=== PATIENT | female | born 1945 | race Caucasian/White ===

== ENCOUNTER 2019-10-13 12:38 | Inpatient (IN) | payer MEDICARE, MEDICAID ==
[~2019-10-13] VITALS: Ht 167.6 cm; Wt 73.0 kg
[~2019-10-13 12:38] MED LIST: ACET650S21 PO; AMLO-150 PO; ASCO500T8 PO; BISA10SU54 PR; CYCL-259 PO; GABA300C PO; INSU100C SQ-INSULIN; INSU100I13 SQ-INSULIN; INSU100V8 SQ; LEVO200T PO; LISI-170 PO; MAGN400O7 PO; MAGN400T9 PO; METF500T17 PO; MORP20SO PO; MULT1TAB98 PO; NYST15PO9 TP; ONDA4TAB7 PO; OXYC-302 PO; OXYC5CAP2 PO; PIPE3.373 INJ; POLY17PO5 PO; PROT1PAC2 PO; RIVA10TA2 PO; SENN-220 PO; TRAM100T3 PO
--- NOTE | 2019-10-13 13:25 | NUR ---
EKG COMPLETE. XRAY COMPLETE. LAB AT BEDSIDE.
[2019-10-13 13:37] LABS: HCT (SEDRATE) 33.1 % (34.6-47.8)
[2019-10-13 13:38] LABS: MEAN CORPUSCULAR HEMOGLOBIN 27.1 pg (27.0-34.8); MEAN CORPUSCULAR HGB CONC 32.2 g/dL (32.4-35.8); MEAN PLATELET VOLUME 6.4 fL (7.4-10.4); PLATELET COUNT 687 x10^3/uL (130-400); RED BLOOD COUNT 3.97 x10^6/uL (3.82-5.3); RED CELL DISTRIBUTION WIDTH 16.3 % (9.6-15.2)
[2019-10-13 13:47] LABS: ALANINE AMINOTRANSFERASE 11 U/L (12-78); ALBUMIN 2.1 g/dL (3.4-5.0); ANION GAP 7 mmol/L (5-15); CALCIUM 8.7 mg/dL (8.5-10.1); CHLORIDE 101 mmol/L (98-107); CREATININE 0.84 mg/dL (0.55-1.02)
--- NOTE | 2019-10-13 13:54 | NUR ---
PT ATTEMPTED TO TRANSFER TO BEDSIDE COMMODE, PT UNABLE TO MOVE MUCH. "I JUST CAN'T ANYMORE TODAY". PT MINIMALLY ROLLED SIDE TO SIDE TO CLEAN UP FROM LOOSE BM. PT STATES SHE HAS BEEN GIVEN LOTS OF STOOL SOFTENERS. PT REFUSES STRAIGHT CATH FOR URINE SAMPLE. NOTIFIED.
[2019-10-13 13:55] LABS: ALKALINE PHOSPHATASE 151 U/L (45-117); BILIRUBIN,TOTAL 0.4 mg/dL (0.2-1.0); TOTAL PROTEIN 6.9 g/dL (6.4-8.2)
[2019-10-13] MEDS ORDERED: PIPERACILLIN/TAZO/PMX 3.375GM 50 ML IV ONE (14:30)
[2019-10-13] MEDS ORDERED: SODIUM CHLORIDE 0.9% 1,000 ML IV ONE (14:30)
--- NOTE | 2019-10-13 14:33 | NUR ---
ATTEMPT TO ASSIST RN WITH STRAIGHT CATH, PT REFUSED. EDUCATION PROVIDED.
[2019-10-13 14:36] LABS: BASOPHILS # (AUTO) 0.07 x10^3/uL (0-0.1); BASOPHILS % (AUTO) 0 % (0-1); EOSINOPHILS # (AUTO) 0.02 x10^3/uL (0-0.4); EOSINOPHILS % (AUTO) 0 % (1-7); LYMPHOCYTES # (AUTO) 2.15 x10^3/uL (1-3.4); LYMPHOCYTES % (AUTO) 11 % (22-44); MONOCYTES # (AUTO) 0.92 x10^3/uL (0.2-0.8); MONOCYTES % (AUTO) 5 % (2-9); NEUTROPHILS # (AUTO) 17.27 x10^3/uL (1.8-6.8); NEUTROPHILS % (AUTO) 85 % (42-75)
[2019-10-13 14:37] LABS: MD MORPH REVIEW ONLY
[2019-10-13 14:39] LABS: ANISOCYTOSIS 1+
[2019-10-13 14:40] LABS: <PLATELET ESTIMATE> INCREASED; <PLT MORPHOLOGY> NORMAL PLT MORPH; POLYCHROMASIA 1+
--- NOTE | 2019-10-13 14:41 | NUR ---
PT AGREED TO STRAIGHT CATH. THIS RN AND ANOTHER FEMALE RN AT BEDSIDE FOR STRAIGHT CATH, PT HAD ANOTHER LOOSE BM AND PT CLEANED UP. BM COLLECTED FOR TESTING. PT POSITIONED FOR STRAIGHT CATH AND SHE STARTED YELLING AND HITTING OUR HANDS AWAY. PT MADE AWARE OF PROCESS AND PT YELLING FOR US TO STOP. PROCEDURE STOPPED AT THIS TIME. PT MADE COMFORTABLE. PT STATING SHE NEEDS TO BE "KNOCKED OUT FOR STRAIGHT CATH". AWARE. NEW ORDER FOR C-DIFF R/O.
--- NOTE | 2019-10-13 15:01 | NUR ---
MD STATES TO HOLD OFF ON ABX UNTIL AFTER C-DIFF RESULTS BACK.
[2019-10-13 15:24] LABS: CLOSTRIDIUM DIFFICILE ANTIGEN NEGATIVE; CLOSTRIDIUM DIFFICILE TOXIN NEGATIVE (Negative)
[2019-10-13] MEDS: SODIUM CHLORIDE 0.9% 1,000 ML IV SCH ×3 (15:57→21:55)
[2019-10-13] MEDS ORDERED: BISACODYL 10 MG SUPP PR PRN (16:00)
[2019-10-13] MEDS: PIPERACILLIN/TAZO/PMX 3.375GM 50 ML IV SCH ×2 (16:00→21:42)
[2019-10-13] MEDS ORDERED: PROMETHAZINE 25 MG/ML, 1ML IM PRN (16:00)
[2019-10-13] MEDS: INSULIN LISPRO 100 UNITS/ML, PEN SQ-INSULIN SCH ×2 (16:00→21:00)
[2019-10-13] MEDS ORDERED: hydrALAzine 20 MG/ML, 1ML IVPush PRN (16:00)
[2019-10-13] MEDS ORDERED: LABETALOL 5MG/ML, 20ML IVPush PRN (16:00)
[2019-10-13] MEDS ORDERED: morphine SULFATE 10 MG/ML, 1ML IVPush PRN (16:00)
[2019-10-13] MEDS ORDERED: ONDANSETRON 2MG/ML, 2ML IVPush PRN (16:00)
[2019-10-13] MEDS ORDERED: PIPERACILLIN/TAZO/PMX 3.375GM 50 ML ONE (16:17)
[2019-10-13] MEDS ORDERED: OXYcodone IR 5MG TABLET ONE (17:18)
[2019-10-13] MEDS: OXYcodone IR 5MG TABLET PO PRN (17:22)
--- NOTE | 2019-10-13 17:45 | NUR ---
LUNCH BREAK NOTE: PT ADJUSTED IN BED, MEDICATED FOR PAIN THEN WARM LINENS PLACED UNDER PT, PT CLEANED OF STOOL AND URINE, AND PT GIVEN WARM BLANKET ON TOP. PT IS ON WAFFLE.
--- NOTE | 2019-10-13 17:56 | NUR ---
REPORT CALLED TO SHREYA ON [employer] AND SHE IS AWARE TO SPEAK TO PRIMARY RN BETH IF ANY FURTHER QUESTIONS.
[2019-10-13 19:24] VITALS: BP 146/85
[2019-10-13] MEDS: ASCORBIC ACID 500 MG TABLET PO SCH (21:42)
[2019-10-13] MEDS: INSULIN GLARGINE 100 UNITS/ML, PEN SQ-INSULIN SCH (21:43)
[2019-10-13 21:46] VITALS: BP 166/94
[2019-10-13 22:37] LABS: MICROSCOPIC AUTO
[2019-10-14 00:55] VITALS: BP 162/92
[2019-10-14] MEDS: OXYcodone IR 5MG TABLET PO PRN ×4 (01:37→19:03)
[2019-10-14] MEDS: SODIUM CHLORIDE 0.9% 1,000 ML IV SCH (01:39)
[2019-10-14] MEDS: PIPERACILLIN/TAZO/PMX 3.375GM 50 ML IV SCH ×4 (03:49→22:25)
[2019-10-14] MEDS: LEVOTHYROXINE 200 MCG TABLET PO SCH (05:09)
[2019-10-14 06:03] LABS: MEAN CORPUSCULAR HEMOGLOBIN 27.1 pg (27.0-34.8); MEAN CORPUSCULAR HGB CONC 32.1 g/dL (32.4-35.8); MEAN PLATELET VOLUME 6.5 fL (7.4-10.4); PLATELET COUNT 617 x10^3/uL (130-400); RED BLOOD COUNT 3.49 x10^6/uL (3.82-5.3); RED CELL DISTRIBUTION WIDTH 16.2 % (9.6-15.2)
[2019-10-14 06:12] LABS: ALANINE AMINOTRANSFERASE 11 U/L (12-78); ALBUMIN 1.8 g/dL (3.4-5.0); ANION GAP 7 mmol/L (5-15); CALCIUM 8.2 mg/dL (8.5-10.1); CHLORIDE 102 mmol/L (98-107)
[2019-10-14 06:14] LABS: ALKALINE PHOSPHATASE 143 U/L (45-117); BILIRUBIN,TOTAL 0.5 mg/dL (0.2-1.0)
[2019-10-14 06:39] LABS: BASOPHILS # (AUTO) 0.05 x10^3/uL (0-0.1); BASOPHILS % (AUTO) 0 % (0-1); EOSINOPHILS % (AUTO) 0 % (1-7); LYMPHOCYTES # (AUTO) 1.92 x10^3/uL (1-3.4); LYMPHOCYTES % (AUTO) 10 % (22-44); MD SCAN; MONOCYTES # (AUTO) 0.75 x10^3/uL (0.2-0.8); MONOCYTES % (AUTO) 4 % (2-9); NEUTROPHILS # (AUTO) 16.56 x10^3/uL (1.8-6.8); NEUTROPHILS % (AUTO) 86 % (42-75)
[2019-10-14 07:06] VITALS: BP 132/67
[2019-10-14] MEDS: INSULIN LISPRO 100 UNITS/ML, PEN SQ-INSULIN SCH ×4 (07:47→21:00)
[2019-10-14] MEDS: INSULIN GLARGINE 100 UNITS/ML, PEN SQ-INSULIN SCH ×2 (07:48→22:41)
[2019-10-14] MEDS: ASCORBIC ACID 500 MG TABLET PO SCH ×2 (07:50→22:38)
[2019-10-14] MEDS: LISINOPRIL 20 MG TABLET PO SCH (07:50)
[2019-10-14] MEDS: AMLODIPINE 5 MG TABLET PO SCH (07:51)
[2019-10-14] MEDS: GABAPENTIN 300 MG CAPSULE PO SCH (07:51)
[2019-10-14] MEDS: RIVAROXABAN 10 MG TABLET PO SCH (07:51)
[2019-10-14 12:27] VITALS: BP 145/84
[2019-10-14] MEDS: POTASSIUM CHLORIDE 20 MEQ TAB.ER.PRT PO SCH (15:53)
[2019-10-14 18:00] VITALS: BP 144/80
[2019-10-14 20:35] VITALS: BP 134/72
[2019-10-15] MEDS: OXYcodone IR 5MG TABLET PO PRN ×3 (00:34→10:37)
[2019-10-15 01:47] VITALS: BP 146/77
[2019-10-15] MEDS: PIPERACILLIN/TAZO/PMX 3.375GM 50 ML IV SCH ×4 (05:17→23:36)
[2019-10-15] MEDS: LEVOTHYROXINE 200 MCG TABLET PO SCH (05:25)
[2019-10-15 06:08] LABS: BASOPHILS # (AUTO) 0.03 x10^3/uL (0-0.1); BASOPHILS % (AUTO) 0 % (0-1); EOSINOPHILS # (AUTO) 0.08 x10^3/uL (0-0.4); EOSINOPHILS % (AUTO) 1 % (1-7); LYMPHOCYTES # (AUTO) 1.87 x10^3/uL (1-3.4); LYMPHOCYTES % (AUTO) 13 % (22-44); MD NO; MEAN CORPUSCULAR HEMOGLOBIN 27.1 pg (27.0-34.8); MEAN CORPUSCULAR HGB CONC 32.5 g/dL (32.4-35.8); MEAN PLATELET VOLUME 6.5 fL (7.4-10.4); MONOCYTES # (AUTO) 1.08 x10^3/uL (0.2-0.8); MONOCYTES % (AUTO) 8 % (2-9); NEUTROPHILS % (AUTO) 79 % (42-75); PLATELET COUNT 592 x10^3/uL (130-400); RED CELL DISTRIBUTION WIDTH 16.6 % (9.6-15.2)
[2019-10-15 06:15] LABS: ALANINE AMINOTRANSFERASE 11 U/L (12-78); ALBUMIN 1.7 g/dL (3.4-5.0); ANION GAP 7 mmol/L (5-15); CALCIUM 8.3 mg/dL (8.5-10.1); CHLORIDE 104 mmol/L (98-107); CREATININE 0.74 mg/dL (0.55-1.02)
[2019-10-15 06:17] LABS: ALKALINE PHOSPHATASE 121 U/L (45-117); BILIRUBIN,TOTAL 0.3 mg/dL (0.2-1.0); TOTAL PROTEIN 5.4 g/dL (6.4-8.2)
[2019-10-15] MEDS: INSULIN LISPRO 100 UNITS/ML, PEN SQ-INSULIN SCH ×4 (07:00→20:57)
[2019-10-15 07:32] VITALS: BP 136/76
[2019-10-15] MEDS: GABAPENTIN 300 MG CAPSULE PO SCH (08:14)
[2019-10-15] MEDS: RIVAROXABAN 10 MG TABLET PO SCH (08:15)
[2019-10-15] MEDS: AMLODIPINE 5 MG TABLET PO SCH (08:15)
[2019-10-15] MEDS: ASCORBIC ACID 500 MG TABLET PO SCH ×2 (08:15→20:58)
[2019-10-15] MEDS: LISINOPRIL 20 MG TABLET PO SCH (08:15)
[2019-10-15] MEDS: POTASSIUM CHLORIDE 20 MEQ TAB.ER.PRT PO SCH ×2 (08:15→17:14)
[2019-10-15] MEDS: INSULIN GLARGINE 100 UNITS/ML, PEN SQ-INSULIN SCH ×2 (08:17→20:58)
[2019-10-15] MEDS: LOPERAMIDE 2 MG CAPSULE PO PRN ×2 (10:37→17:19)
[2019-10-15 14:29] VITALS: BP 157/86
[2019-10-15] MEDS: CYCLOBENZAPRINE 10 MG TABLET PO PRN (17:19)
[2019-10-15] MEDS: ACETAMINOPHEN 325 MG TABLET PO PRN (17:19)
[2019-10-15 19:54] VITALS: BP 121/76
[2019-10-15] MEDS ORDERED: ASCORBIC ACID 250 MG TAB ONE (20:50)
[2019-10-16 01:00] VITALS: BP 140/68
[2019-10-16] MEDS: LEVOTHYROXINE 200 MCG TABLET PO SCH (04:41)
[2019-10-16] MEDS: CYCLOBENZAPRINE 10 MG TABLET PO PRN ×2 (04:41→21:35)
[2019-10-16] MEDS: ACETAMINOPHEN 325 MG TABLET PO PRN ×3 (04:41→21:34)
[2019-10-16] MEDS: LOPERAMIDE 2 MG CAPSULE PO PRN ×3 (04:42→21:34)
[2019-10-16] MEDS: PIPERACILLIN/TAZO/PMX 3.375GM 50 ML IV SCH ×4 (04:57→23:15)
[2019-10-16 05:35] LABS: ALBUMIN 1.9 g/dL (3.4-5.0); ANION GAP 7 mmol/L (5-15); CALCIUM 8.4 mg/dL (8.5-10.1); CHLORIDE 102 mmol/L (98-107)
[2019-10-16 05:39] LABS: ALANINE AMINOTRANSFERASE 17 U/L (12-78); ALKALINE PHOSPHATASE 131 U/L (45-117); BILIRUBIN,TOTAL 0.5 mg/dL (0.2-1.0); CREATININE 0.89 mg/dL (0.55-1.02); TOTAL PROTEIN 6.4 g/dL (6.4-8.2)
[2019-10-16 05:45] LABS: BASOPHILS # (AUTO) 0.06 x10^3/uL (0-0.1); BASOPHILS % (AUTO) 0 % (0-1); EOSINOPHILS # (AUTO) 0.04 x10^3/uL (0-0.4); EOSINOPHILS % (AUTO) 0 % (1-7); LYMPHOCYTES # (AUTO) 1.08 x10^3/uL (1-3.4); LYMPHOCYTES % (AUTO) 8 % (22-44); MD NO; MEAN CORPUSCULAR HEMOGLOBIN 26.7 pg (27.0-34.8); MEAN PLATELET VOLUME 6.5 fL (7.4-10.4); MONOCYTES # (AUTO) 1.14 x10^3/uL (0.2-0.8); MONOCYTES % (AUTO) 8 % (2-9); NEUTROPHILS # (AUTO) 11.53 x10^3/uL (1.8-6.8); NEUTROPHILS % (AUTO) 83 % (42-75); PLATELET COUNT 730 x10^3/uL (130-400); RED BLOOD COUNT 3.44 x10^6/uL (3.82-5.3); RED CELL DISTRIBUTION WIDTH 16.5 % (9.6-15.2)
[2019-10-16] MEDS: OXYcodone IR 5MG TABLET PO PRN ×3 (06:04→21:34)
[2019-10-16] MEDS: INSULIN LISPRO 100 UNITS/ML, PEN SQ-INSULIN SCH ×4 (07:00→21:33)
[2019-10-16 07:10] VITALS: BP 123/74
[2019-10-16] MEDS: GABAPENTIN 300 MG CAPSULE PO SCH (09:15)
[2019-10-16] MEDS: AMLODIPINE 5 MG TABLET PO SCH (09:15)
[2019-10-16] MEDS: RIVAROXABAN 10 MG TABLET PO SCH (09:15)
[2019-10-16] MEDS: LISINOPRIL 20 MG TABLET PO SCH (09:15)
[2019-10-16] MEDS: INSULIN GLARGINE 100 UNITS/ML, PEN SQ-INSULIN SCH ×2 (09:16→21:35)
[2019-10-16] MEDS: POTASSIUM CHLORIDE 20 MEQ TAB.ER.PRT PO SCH ×3 (09:16→21:34)
[2019-10-16] MEDS: ASCORBIC ACID 500 MG TABLET PO SCH ×2 (09:16→21:34)
[2019-10-16 13:21] VITALS: BP 126/68
[2019-10-16 18:38] VITALS: BP 140/79
[2019-10-17 01:00] VITALS: BP 130/82
[2019-10-17] MEDS: CYCLOBENZAPRINE 10 MG TABLET PO PRN ×2 (05:20→19:48)
[2019-10-17] MEDS: OXYcodone IR 5MG TABLET PO PRN ×3 (05:20→22:56)
[2019-10-17] MEDS: LEVOTHYROXINE 200 MCG TABLET PO SCH (05:20)
[2019-10-17] MEDS: PIPERACILLIN/TAZO/PMX 3.375GM 50 ML IV SCH ×4 (05:20→22:56)
[2019-10-17 05:43] LABS: BASOPHILS # (AUTO) 0.03 x10^3/uL (0-0.1); BASOPHILS % (AUTO) 0 % (0-1); EOSINOPHILS # (AUTO) 0.07 x10^3/uL (0-0.4); EOSINOPHILS % (AUTO) 1 % (1-7); LYMPHOCYTES % (AUTO) 13 % (22-44); MD NO; MEAN CORPUSCULAR HGB CONC 32.4 g/dL (32.4-35.8); MEAN PLATELET VOLUME 6.4 fL (7.4-10.4); MONOCYTES # (AUTO) 1.23 x10^3/uL (0.2-0.8); MONOCYTES % (AUTO) 12 % (2-9); NEUTROPHILS # (AUTO) 7.94 x10^3/uL (1.8-6.8); NEUTROPHILS % (AUTO) 74 % (42-75); PLATELET COUNT 724 x10^3/uL (130-400); RED BLOOD COUNT 3.56 x10^6/uL (3.82-5.3); RED CELL DISTRIBUTION WIDTH 16.2 % (9.6-15.2)
[2019-10-17 05:49] LABS: ALANINE AMINOTRANSFERASE 18 U/L (12-78); ALBUMIN 1.8 g/dL (3.4-5.0); ANION GAP 6 mmol/L (5-15); CALCIUM 8.3 mg/dL (8.5-10.1); CHLORIDE 101 mmol/L (98-107); CREATININE 0.82 mg/dL (0.55-1.02)
[2019-10-17 05:51] LABS: ALKALINE PHOSPHATASE 121 U/L (45-117); BILIRUBIN,TOTAL 0.4 mg/dL (0.2-1.0); TOTAL PROTEIN 6.3 g/dL (6.4-8.2)
[2019-10-17] MEDS: INSULIN LISPRO 100 UNITS/ML, PEN SQ-INSULIN SCH ×4 (07:00→19:45)
[2019-10-17] MEDS: INSULIN GLARGINE 100 UNITS/ML, PEN SQ-INSULIN SCH ×3 (07:52→19:46)
[2019-10-17] MEDS: AMLODIPINE 5 MG TABLET PO SCH (07:56)
[2019-10-17] MEDS: POTASSIUM CHLORIDE 20 MEQ TAB.ER.PRT PO SCH ×3 (07:56→19:45)
[2019-10-17] MEDS: RIVAROXABAN 10 MG TABLET PO SCH (07:56)
[2019-10-17] MEDS: LISINOPRIL 20 MG TABLET PO SCH (07:56)
[2019-10-17] MEDS: GABAPENTIN 300 MG CAPSULE PO SCH (07:56)
[2019-10-17] MEDS: ASCORBIC ACID 500 MG TABLET PO SCH ×2 (07:56→19:45)
[2019-10-17 07:57] VITALS: BP 123/73
[2019-10-17] MEDS ORDERED: INSULIN GLARGINE 100 UNITS/ML, PEN SQ-INSULIN SCH ×2 (09:00→21:00)
[2019-10-17 14:02] VITALS: BP 124/68
[2019-10-17 18:23] VITALS: BP 130/76
[2019-10-18 01:09] VITALS: BP 129/65
[2019-10-18 04:40] LABS: MEAN CORPUSCULAR HGB CONC 32.2 g/dL (32.4-35.8); MEAN PLATELET VOLUME 6.1 fL (7.4-10.4); PLATELET COUNT 674 x10^3/uL (130-400); RED BLOOD COUNT 3.49 x10^6/uL (3.82-5.3); RED CELL DISTRIBUTION WIDTH 16.7 % (9.6-15.2)
[2019-10-18 04:41] LABS: ALBUMIN 1.7 g/dL (3.4-5.0); CALCIUM 8.1 mg/dL (8.5-10.1); CHLORIDE 102 mmol/L (98-107)
[2019-10-18] MEDS: PIPERACILLIN/TAZO/PMX 3.375GM 50 ML IV SCH ×4 (04:59→23:02)
[2019-10-18 05:00] LABS: ALANINE AMINOTRANSFERASE 21 U/L (12-78); ALKALINE PHOSPHATASE 123 U/L (45-117); ANION GAP 7 mmol/L (5-15); BILIRUBIN,TOTAL 0.5 mg/dL (0.2-1.0); CREATININE 0.87 mg/dL (0.55-1.02); TOTAL PROTEIN 6.3 g/dL (6.4-8.2)
[2019-10-18 05:07] LABS: BASOPHILS # (AUTO) 0.03 x10^3/uL (0-0.1); BASOPHILS % (AUTO) 0 % (0-1); EOSINOPHILS # (AUTO) 0.05 x10^3/uL (0-0.4); EOSINOPHILS % (AUTO) 0 % (1-7); LYMPHOCYTES # (AUTO) 1.47 x10^3/uL (1-3.4); LYMPHOCYTES % (AUTO) 11 % (22-44); MD SCAN; MONOCYTES # (AUTO) 1.51 x10^3/uL (0.2-0.8); MONOCYTES % (AUTO) 12 % (2-9); NEUTROPHILS # (AUTO) 9.93 x10^3/uL (1.8-6.8); NEUTROPHILS % (AUTO) 77 % (42-75)
[2019-10-18] MEDS: LEVOTHYROXINE 200 MCG TABLET PO SCH (05:28)
[2019-10-18] MEDS: OXYcodone IR 5MG TABLET PO PRN ×2 (05:29→14:05)
[2019-10-18] MEDS: INSULIN LISPRO 100 UNITS/ML, PEN SQ-INSULIN SCH ×4 (07:00→21:00)
[2019-10-18 07:58] VITALS: BP 140/80
[2019-10-18] MEDS: GABAPENTIN 300 MG CAPSULE PO SCH (09:07)
[2019-10-18] MEDS: AMLODIPINE 5 MG TABLET PO SCH (09:07)
[2019-10-18] MEDS: LISINOPRIL 20 MG TABLET PO SCH (09:07)
[2019-10-18] MEDS: POTASSIUM CHLORIDE 20 MEQ TAB.ER.PRT PO SCH ×4 (09:07→23:02)
[2019-10-18] MEDS: ASCORBIC ACID 500 MG TABLET PO SCH ×2 (09:07→23:02)
[2019-10-18] MEDS: RIVAROXABAN 10 MG TABLET PO SCH (09:07)
[2019-10-18] MEDS: INSULIN GLARGINE 100 UNITS/ML, PEN SQ-INSULIN SCH ×2 (09:08→21:00)
[2019-10-18 13:48] VITALS: BP 165/82
[2019-10-18] MEDS ORDERED: DEXTROSE 50%, 50ML SYRINGE IVPush PRN (14:00)
[2019-10-18] MEDS ORDERED: GLUCAGON 1 MG IM PRN (14:00)
[2019-10-18] MEDS ORDERED: DEXTROSE 4 GM TAB.CHEW PO PRN (14:00)
[2019-10-18 14:58] LABS: MICROSCOPIC INDICATED
[2019-10-18] MEDS ORDERED: LORazepam 2 MG/ML, 1ML IVPush ONE (16:00)
[2019-10-18] MEDS ORDERED: GADOTERATE 10 MMOL/20 ML SYR ONE (16:47)
[2019-10-18] MEDS: LACTATED RINGERS 1,000 ML IV SCH (17:26)
[2019-10-18 20:20] VITALS: BP 145/79
[2019-10-18] MEDS: SODIUM CHLORIDE FLUSH 10ML SYR IVF SCH (21:00)
[2019-10-18] MEDS: CYCLOBENZAPRINE 10 MG TABLET PO PRN (23:02)
[2019-10-19 01:09] VITALS: BP 146/85
[2019-10-19] MEDS ORDERED: ACETAMINOPHEN 650 MG SUPP PR PRN (01:30)
[2019-10-19 02:42] LABS: BASOPHILS # (AUTO) 0.02 x10^3/uL (0-0.1); BASOPHILS % (AUTO) 0 % (0-1); EOSINOPHILS # (AUTO) 0.03 x10^3/uL (0-0.4); EOSINOPHILS % (AUTO) 0 % (1-7); LYMPHOCYTES % (AUTO) 7 % (22-44); MD NO; MEAN CORPUSCULAR HEMOGLOBIN 26.7 pg (27.0-34.8); MEAN CORPUSCULAR HGB CONC 32.2 g/dL (32.4-35.8); MEAN PLATELET VOLUME 6.3 fL (7.4-10.4); MONOCYTES # (AUTO) 0.69 x10^3/uL (0.2-0.8); MONOCYTES % (AUTO) 6 % (2-9); NEUTROPHILS # (AUTO) 9.72 x10^3/uL (1.8-6.8); NEUTROPHILS % (AUTO) 86 % (42-75); PLATELET COUNT 679 x10^3/uL (130-400); RED BLOOD COUNT 3.48 x10^6/uL (3.82-5.3); RED CELL DISTRIBUTION WIDTH 16.5 % (9.6-15.2)
[2019-10-19 03:10] LABS: ALANINE AMINOTRANSFERASE 26 U/L (12-78); ALBUMIN 1.7 g/dL (3.4-5.0); ANION GAP 9 mmol/L (5-15); CALCIUM 8.4 mg/dL (8.5-10.1); CHLORIDE 101 mmol/L (98-107); CREATININE 0.95 mg/dL (0.55-1.02)
[2019-10-19 03:12] LABS: ALKALINE PHOSPHATASE 127 U/L (45-117); BILIRUBIN,TOTAL 0.5 mg/dL (0.2-1.0); TOTAL PROTEIN 6.5 g/dL (6.4-8.2)
[2019-10-19 03:25] LABS: T4 (THYROXINE) 13.4 mcg/dL (4.8-13.9)
[2019-10-19 04:39] VITALS: BP 123/64
[2019-10-19] MEDS: LEVOTHYROXINE 200 MCG TABLET PO SCH (06:29)
[2019-10-19] MEDS: PIPERACILLIN/TAZO/PMX 3.375GM 50 ML IV SCH ×3 (06:29→20:42)
[2019-10-19] MEDS: INSULIN LISPRO 100 UNITS/ML, PEN SQ-INSULIN SCH ×4 (06:44→21:11)
[2019-10-19 07:48] VITALS: BP 153/79
[2019-10-19] MEDS: LACTATED RINGERS 1,000 ML IV SCH (08:21)
[2019-10-19] MEDS: GABAPENTIN 300 MG CAPSULE PO SCH (08:22)
[2019-10-19] MEDS: LISINOPRIL 20 MG TABLET PO SCH ×2 (08:22→09:00)
[2019-10-19] MEDS: POTASSIUM CHLORIDE 20 MEQ TAB.ER.PRT PO SCH ×3 (08:22→21:02)
[2019-10-19] MEDS: ASCORBIC ACID 500 MG TABLET PO SCH ×3 (08:23→21:02)
[2019-10-19] MEDS: RIVAROXABAN 10 MG TABLET PO SCH (08:23)
[2019-10-19] MEDS: AMLODIPINE 5 MG TABLET PO SCH (08:23)
[2019-10-19] MEDS: ACETAMINOPHEN 325 MG TABLET PO PRN ×3 (08:23→16:06)
[2019-10-19] MEDS: SODIUM CHLORIDE FLUSH 10ML SYR IVF SCH ×2 (09:00→21:02)
[2019-10-19] MEDS: ASPIRIN 81 MG TABLET CHEW PO SCH ×2 (09:30→10:56)
[2019-10-19 13:50] VITALS: BP 145/72
[2019-10-19] MEDS: FLUCONAZOLE 100MG/50ML 100 MG in BAG 1 EACH IV SCH (14:01)
[2019-10-19 14:43] LABS: CHOL/HDL RATIO 11.2; LDL/HDL RATIO 7.9 (0.5-3.0)
[2019-10-19] MEDS: CYCLOBENZAPRINE 10 MG TABLET PO PRN (16:05)
[2019-10-19] MEDS: OXYcodone IR 5MG TABLET PO PRN (16:06)
[2019-10-19] MEDS ORDERED: OMNIPAQUE 350 MG/ML, 100ML BOTTLE ONE (19:11)
[2019-10-19 19:51] VITALS: BP 120/73
[2019-10-19] MEDS: ATORVASTATIN 80 MG TABLET PO SCH ×2 (21:02→21:50)
[2019-10-19] MEDS: INSULIN GLARGINE 100 UNITS/ML, PEN SQ-INSULIN SCH (21:10)
[2019-10-20 01:27] VITALS: BP 136/83
[2019-10-20] MEDS: POTASSIUM CHLORIDE 20 MEQ TAB.ER.PRT PO SCH ×4 (01:53→21:36)
[2019-10-20] MEDS: PIPERACILLIN/TAZO/PMX 3.375GM 50 ML IV SCH ×4 (03:11→21:37)
[2019-10-20] MEDS: ASCORBIC ACID 500 MG TABLET PO SCH ×3 (03:20→21:37)
[2019-10-20] MEDS: OXYcodone IR 5MG TABLET PO PRN ×3 (04:23→15:08)
[2019-10-20] MEDS: LEVOTHYROXINE 200 MCG TABLET PO SCH (06:19)
[2019-10-20 06:59] VITALS: BP 111/64
[2019-10-20] MEDS: INSULIN LISPRO 100 UNITS/ML, PEN SQ-INSULIN SCH ×4 (07:00→21:00)
[2019-10-20] MEDS: GABAPENTIN 300 MG CAPSULE PO SCH (10:21)
[2019-10-20] MEDS: ASPIRIN 81 MG TABLET CHEW PO SCH (10:21)
[2019-10-20] MEDS: RIVAROXABAN 10 MG TABLET PO SCH (10:21)
[2019-10-20] MEDS: AMLODIPINE 5 MG TABLET PO SCH (10:21)
[2019-10-20] MEDS: INSULIN GLARGINE 100 UNITS/ML, PEN SQ-INSULIN SCH ×2 (10:22→21:30)
[2019-10-20] MEDS: LISINOPRIL 20 MG TABLET PO SCH (10:22)
[2019-10-20] MEDS: SODIUM CHLORIDE FLUSH 10ML SYR IVF SCH ×2 (10:23→21:37)
[2019-10-20] MEDS: LACTATED RINGERS 1,000 ML IV SCH (10:23)
[2019-10-20] MEDS: ACETAMINOPHEN 325 MG TABLET PO PRN ×2 (12:28→21:36)
[2019-10-20] MEDS: CYCLOBENZAPRINE 10 MG TABLET PO PRN (12:29)
[2019-10-20] MEDS: FLUCONAZOLE 100MG/50ML 100 MG in BAG 1 EACH IV SCH (14:00)
[2019-10-20 15:00] VITALS: BP 116/72
[2019-10-20 19:52] VITALS: BP 125/73
[2019-10-20] MEDS: ATORVASTATIN 80 MG TABLET PO SCH (21:37)
[2019-10-20] MEDS ORDERED: ACETAMINOPHEN 325 MG TABLET PO ONE (23:30)
[2019-10-21 00:48] VITALS: BP 114/70
[2019-10-21] MEDS: LACTATED RINGERS 1,000 ML IV SCH ×2 (01:00→14:41)
[2019-10-21] MEDS: PIPERACILLIN/TAZO/PMX 3.375GM 50 ML IV SCH ×4 (02:34→22:45)
[2019-10-21] MEDS: OXYcodone IR 5MG TABLET PO PRN (02:53)
[2019-10-21] MEDS: LEVOTHYROXINE 200 MCG TABLET PO SCH (06:08)
[2019-10-21 06:25] LABS: MEAN CORPUSCULAR HGB CONC 31.7 g/dL (32.4-35.8); MEAN PLATELET VOLUME 6.8 fL (7.4-10.4); PLATELET COUNT 538 x10^3/uL (130-400); RED BLOOD COUNT 3.44 x10^6/uL (3.82-5.3); RED CELL DISTRIBUTION WIDTH 17.1 % (9.6-15.2)
[2019-10-21 06:32] LABS: ALBUMIN 1.8 g/dL (3.4-5.0); ANION GAP 7 mmol/L (5-15); CALCIUM 8.6 mg/dL (8.5-10.1); CHLORIDE 102 mmol/L (98-107)
[2019-10-21 06:35] LABS: ALANINE AMINOTRANSFERASE 58 U/L (12-78); ALKALINE PHOSPHATASE 126 U/L (45-117); BILIRUBIN,TOTAL 0.5 mg/dL (0.2-1.0); CREATININE 1.09 mg/dL (0.55-1.02); TOTAL PROTEIN 6.2 g/dL (6.4-8.2)
[2019-10-21] MEDS: INSULIN LISPRO 100 UNITS/ML, PEN SQ-INSULIN SCH ×4 (07:00→22:47)
[2019-10-21] MEDS: ASCORBIC ACID 500 MG TABLET PO SCH ×2 (08:13→22:46)
[2019-10-21] MEDS: LISINOPRIL 20 MG TABLET PO SCH (08:13)
[2019-10-21] MEDS: AMLODIPINE 5 MG TABLET PO SCH (08:13)
[2019-10-21] MEDS: GABAPENTIN 300 MG CAPSULE PO SCH (08:13)
[2019-10-21] MEDS: INSULIN GLARGINE 100 UNITS/ML, PEN SQ-INSULIN SCH (08:13)
[2019-10-21] MEDS: ACETAMINOPHEN 325 MG TABLET PO PRN (08:13)
[2019-10-21] MEDS: RIVAROXABAN 10 MG TABLET PO SCH (08:14)
[2019-10-21] MEDS: CYCLOBENZAPRINE 10 MG TABLET PO PRN (08:14)
[2019-10-21] MEDS: ASPIRIN 81 MG TABLET CHEW PO SCH (08:14)
[2019-10-21] MEDS: SODIUM CHLORIDE FLUSH 10ML SYR IVF SCH ×2 (08:14→21:00)
[2019-10-21] MEDS: POTASSIUM CHLORIDE 20 MEQ TAB.ER.PRT PO SCH (08:14)
[2019-10-21 08:38] LABS: MD MORPH REVIEW ONLY
[2019-10-21 08:39] LABS: ANISOCYTOSIS 1+; BASOPHILS # (AUTO) 0.01 x10^3/uL (0-0.1); BASOPHILS % (AUTO) 0 % (0-1); EOSINOPHILS # (AUTO) 0.21 x10^3/uL (0-0.4); EOSINOPHILS % (AUTO) 3 % (1-7); HYPOCHROMIA 1+; LYMPHOCYTES % (AUTO) 7 % (22-44); MONOCYTES # (AUTO) 0.46 x10^3/uL (0.2-0.8); MONOCYTES % (AUTO) 7 % (2-9); NEUTROPHILS # (AUTO) 5.75 x10^3/uL (1.8-6.8); NEUTROPHILS % (AUTO) 83 % (42-75)
[2019-10-21 08:40] LABS: <PLATELET ESTIMATE> INCREASED; <PLT MORPHOLOGY> NORMAL PLT MORPH
[2019-10-21 09:30] VITALS: BP 109/52
[2019-10-21] MEDS ORDERED: POTASSIUM CHLORIDE 20 MEQ TAB.ER.PRT PO SCH (09:30)
[2019-10-21] MEDS: FLUCONAZOLE 100MG/50ML 100 MG in BAG 1 EACH IV SCH (13:31)
[2019-10-21 15:30] VITALS: BP 134/75
[2019-10-21] MEDS ORDERED: INSULIN GLARGINE 100 UNITS/ML, PEN SQ-INSULIN SCH (21:00)
[2019-10-21] MEDS: ATORVASTATIN 80 MG TABLET PO SCH (22:46)
[2019-10-21] MEDS: APIXABAN 5 MG TABLET PO SCH (22:46)
[2019-10-22] MEDS: ACETAMINOPHEN 325 MG TABLET PO PRN ×2 (01:04→09:59)
[2019-10-22] MEDS: CYCLOBENZAPRINE 10 MG TABLET PO PRN ×2 (01:04→10:00)
[2019-10-22 01:07] VITALS: BP 131/68
[2019-10-22] MEDS: LACTATED RINGERS 1,000 ML IV SCH (01:16)
[2019-10-22 05:33] LABS: ALANINE AMINOTRANSFERASE 45 U/L (12-78); ALBUMIN 1.6 g/dL (3.4-5.0); ANION GAP 10 mmol/L (5-15); CALCIUM 8.2 mg/dL (8.5-10.1); CHLORIDE 101 mmol/L (98-107); CREATININE 0.86 mg/dL (0.55-1.02)
[2019-10-22 05:35] LABS: ALKALINE PHOSPHATASE 101 U/L (45-117); BILIRUBIN,TOTAL 0.4 mg/dL (0.2-1.0); TOTAL PROTEIN 5.3 g/dL (6.4-8.2)
[2019-10-22] MEDS: PIPERACILLIN/TAZO/PMX 3.375GM 50 ML IV SCH ×4 (05:42→23:27)
[2019-10-22] MEDS: LEVOTHYROXINE 200 MCG TABLET PO SCH (05:42)
[2019-10-22 05:58] LABS: MEAN CORPUSCULAR HEMOGLOBIN 26.1 pg (27.0-34.8); MEAN PLATELET VOLUME 6.9 fL (7.4-10.4); PLATELET COUNT 405 x10^3/uL (130-400); RED BLOOD COUNT 2.96 x10^6/uL (3.82-5.3); RED CELL DISTRIBUTION WIDTH 17.4 % (9.6-15.2)
[2019-10-22] MEDS: OXYcodone IR 5MG TABLET PO PRN ×2 (06:09→12:14)
[2019-10-22 06:28] LABS: BASOPHILS # (AUTO) 0.01 x10^3/uL (0-0.1); BASOPHILS % (AUTO) 0 % (0-1); EOSINOPHILS % (AUTO) 4 % (1-7); LYMPHOCYTES # (AUTO) 0.96 x10^3/uL (1-3.4); LYMPHOCYTES % (AUTO) 20 % (22-44); MD SCAN; MONOCYTES # (AUTO) 0.36 x10^3/uL (0.2-0.8); MONOCYTES % (AUTO) 7 % (2-9); NEUTROPHILS # (AUTO) 3.35 x10^3/uL (1.8-6.8); NEUTROPHILS % (AUTO) 69 % (42-75)
[2019-10-22 06:30] VITALS: BP 136/75
[2019-10-22] MEDS: INSULIN LISPRO 100 UNITS/ML, PEN SQ-INSULIN SCH ×4 (07:00→21:00)
[2019-10-22] MEDS ORDERED: FLUCONAZOLE 200 MG TABLET ONE (09:39)
[2019-10-22] MEDS ORDERED: POTASSIUM CHLORIDE 20 MEQ TAB.ER.PRT ONE (09:39)
[2019-10-22] MEDS: INSULIN GLARGINE 100 UNITS/ML, PEN SQ-INSULIN SCH ×2 (09:57→21:53)
[2019-10-22] MEDS: APIXABAN 5 MG TABLET PO SCH ×2 (09:58→21:00)
[2019-10-22] MEDS: SODIUM CHLORIDE FLUSH 10ML SYR IVF SCH ×2 (09:58→23:27)
[2019-10-22] MEDS: ASCORBIC ACID 500 MG TABLET PO SCH ×2 (09:59→21:00)
[2019-10-22] MEDS: AMLODIPINE 5 MG TABLET PO SCH (09:59)
[2019-10-22] MEDS: FLUCONAZOLE 200 MG TABLET PO SCH (09:59)
[2019-10-22] MEDS: GABAPENTIN 300 MG CAPSULE PO SCH (09:59)
[2019-10-22] MEDS: POTASSIUM CHLORIDE 20 MEQ TAB.ER.PRT PO SCH ×2 (09:59→21:00)
[2019-10-22 13:41] VITALS: BP 133/73
[2019-10-22 19:22] VITALS: BP 114/73
[2019-10-22] MEDS ORDERED: POTASSIUM CHLORIDE 20 MEQ TAB.ER.PRT PO SCH (21:00)
[2019-10-22] MEDS ORDERED: INSULIN GLARGINE 100 UNITS/ML, PEN SQ-INSULIN SCH (21:00)
[2019-10-22] MEDS: ATORVASTATIN 80 MG TABLET PO SCH (21:00)
[2019-10-22] MEDS ORDERED: POTASSIUM CHLORIDE 40 MEQ in SODIUM CHLORIDE 0.9% 500 ML IV ONE (23:30)
[2019-10-22] MEDS ORDERED: MAGNESIUM SULFATE PMX 2GM/50ML 50 ML IV ONE (23:30)
[2019-10-23 01:57] VITALS: BP 145/78
[2019-10-23] MEDS: LEVOTHYROXINE 200 MCG TABLET PO SCH (06:39)
[2019-10-23] MEDS: INSULIN LISPRO 100 UNITS/ML, PEN SQ-INSULIN SCH ×4 (07:00→21:00)
[2019-10-23 07:28] VITALS: BP 128/80
[2019-10-23] MEDS: INSULIN GLARGINE 100 UNITS/ML, PEN SQ-INSULIN SCH ×2 (09:00→21:01)
[2019-10-23 10:05] LABS: BASOPHILS # (AUTO) 0.01 x10^3/uL (0-0.1); BASOPHILS % (AUTO) 0 % (0-1); EOSINOPHILS # (AUTO) 0.09 x10^3/uL (0-0.4); EOSINOPHILS % (AUTO) 2 % (1-7); LYMPHOCYTES # (AUTO) 1.04 x10^3/uL (1-3.4); LYMPHOCYTES % (AUTO) 19 % (22-44); MD NO; MEAN CORPUSCULAR HEMOGLOBIN 26.1 pg (27.0-34.8); MEAN CORPUSCULAR HGB CONC 31.8 g/dL (32.4-35.8); MONOCYTES # (AUTO) 0.35 x10^3/uL (0.2-0.8); MONOCYTES % (AUTO) 6 % (2-9); NEUTROPHILS # (AUTO) 4.01 x10^3/uL (1.8-6.8); NEUTROPHILS % (AUTO) 73 % (42-75); PLATELET COUNT 418 x10^3/uL (130-400); RED BLOOD COUNT 3.19 x10^6/uL (3.82-5.3); RED CELL DISTRIBUTION WIDTH 17.3 % (9.6-15.2)
[2019-10-23] MEDS: ASCORBIC ACID 500 MG TABLET PO SCH ×2 (10:10→21:00)
[2019-10-23] MEDS: AMLODIPINE 5 MG TABLET PO SCH (10:10)
[2019-10-23] MEDS: APIXABAN 5 MG TABLET PO SCH ×2 (10:10→20:59)
[2019-10-23] MEDS: GABAPENTIN 300 MG CAPSULE PO SCH (10:10)
[2019-10-23] MEDS: POTASSIUM CHLORIDE 20 MEQ TAB.ER.PRT PO SCH ×2 (10:11→21:00)
[2019-10-23] MEDS: PIPERACILLIN/TAZO/PMX 3.375GM 50 ML IV SCH ×4 (10:11→23:01)
[2019-10-23] MEDS: DOXYCYCLINE 100MG TABLET PO SCH ×2 (10:12→20:59)
[2019-10-23] MEDS: FLUCONAZOLE 200 MG TABLET PO SCH (10:12)
[2019-10-23] MEDS: SODIUM CHLORIDE FLUSH 10ML SYR IVF SCH ×2 (10:16→21:00)
[2019-10-23 10:17] LABS: ALANINE AMINOTRANSFERASE 46 U/L (12-78); ALBUMIN 1.6 g/dL (3.4-5.0); ANION GAP 9 mmol/L (5-15); CALCIUM 7.8 mg/dL (8.5-10.1); CHLORIDE 100 mmol/L (98-107); CREATININE 0.76 mg/dL (0.55-1.02)
[2019-10-23 10:19] LABS: ALKALINE PHOSPHATASE 114 U/L (45-117); BILIRUBIN,TOTAL 0.3 mg/dL (0.2-1.0); TOTAL PROTEIN 5.5 g/dL (6.4-8.2)
[2019-10-23 14:10] VITALS: BP 143/83
[2019-10-23] MEDS: OXYcodone IR 5MG TABLET PO PRN (14:51)
[2019-10-23 19:28] VITALS: BP 139/84
[2019-10-23] MEDS: ATORVASTATIN 80 MG TABLET PO SCH (20:59)
[2019-10-23] MEDS: CYCLOBENZAPRINE 10 MG TABLET PO PRN (23:01)
[2019-10-24 00:37] VITALS: BP 141/81
[2019-10-24 01:17] LABS: MICROSCOPIC INDICATED
[2019-10-24 03:34] LABS: CLOSTRIDIUM DIFFICILE ANTIGEN NEGATIVE; CLOSTRIDIUM DIFFICILE TOXIN NEGATIVE (Negative)
[2019-10-24] MEDS: PIPERACILLIN/TAZO/PMX 3.375GM 50 ML IV SCH (05:28)
[2019-10-24] MEDS: LEVOTHYROXINE 200 MCG TABLET PO SCH (05:45)
[2019-10-24 05:46] LABS: BASOPHILS # (AUTO) 0.01 x10^3/uL (0-0.1); BASOPHILS % (AUTO) 0 % (0-1); EOSINOPHILS # (AUTO) 0.38 x10^3/uL (0-0.4); EOSINOPHILS % (AUTO) 6 % (1-7); LYMPHOCYTES # (AUTO) 1.28 x10^3/uL (1-3.4); LYMPHOCYTES % (AUTO) 18 % (22-44); MD NO; MEAN CORPUSCULAR HEMOGLOBIN 25.7 pg (27.0-34.8); MEAN CORPUSCULAR HGB CONC 31.3 g/dL (32.4-35.8); MEAN PLATELET VOLUME 7.1 fL (7.4-10.4); MONOCYTES # (AUTO) 0.28 x10^3/uL (0.2-0.8); MONOCYTES % (AUTO) 4 % (2-9); NEUTROPHILS # (AUTO) 4.99 x10^3/uL (1.8-6.8); NEUTROPHILS % (AUTO) 72 % (42-75); PLATELET COUNT 500 x10^3/uL (130-400); RED BLOOD COUNT 3.66 x10^6/uL (3.82-5.3); RED CELL DISTRIBUTION WIDTH 17.2 % (9.6-15.2)
[2019-10-24] MEDS: OXYcodone IR 5MG TABLET PO PRN (05:46)
[2019-10-24 05:50] LABS: ALBUMIN 1.7 g/dL (3.4-5.0); ANION GAP 8 mmol/L (5-15); CHLORIDE 99 mmol/L (98-107)
[2019-10-24 05:56] LABS: ALANINE AMINOTRANSFERASE 52 U/L (12-78); ALKALINE PHOSPHATASE 124 U/L (45-117); BILIRUBIN,TOTAL 0.5 mg/dL (0.2-1.0); CREATININE 0.86 mg/dL (0.55-1.02); TOTAL PROTEIN 6.1 g/dL (6.4-8.2)
[2019-10-24 07:25] VITALS: BP 122/75
[2019-10-24] MEDS: AMLODIPINE 5 MG TABLET PO SCH (08:58)
[2019-10-24] MEDS: DOXYCYCLINE 100MG TABLET PO SCH (08:58)
[2019-10-24] MEDS: APIXABAN 5 MG TABLET PO SCH ×2 (08:58→21:35)
[2019-10-24] MEDS: ASCORBIC ACID 500 MG TABLET PO SCH ×2 (08:58→21:35)
[2019-10-24] MEDS: POTASSIUM CHLORIDE 20 MEQ TAB.ER.PRT PO SCH (08:58)
[2019-10-24] MEDS: INSULIN GLARGINE 100 UNITS/ML, PEN SQ-INSULIN SCH ×2 (08:59→22:02)
[2019-10-24] MEDS: INSULIN LISPRO 100 UNITS/ML, PEN SQ-INSULIN SCH ×4 (08:59→22:03)
[2019-10-24] MEDS: GABAPENTIN 300 MG CAPSULE PO SCH (08:59)
[2019-10-24] MEDS: SODIUM CHLORIDE FLUSH 10ML SYR IVF SCH ×2 (09:03→21:35)
[2019-10-24] MEDS ORDERED: PHARMACY INSTRUCTION MC PRN (11:30)
[2019-10-24] MEDS ORDERED: INSTRUCTION SEE COMMENTS XX PRN (11:30)
[2019-10-24] MEDS: FLUCONAZOLE 200 MG TABLET PO SCH (11:53)
[2019-10-24] MEDS ORDERED: QUETIAPINE 25MG TABLET PO PRN (12:00)
[2019-10-24 13:53] VITALS: BP 146/86
[2019-10-24 18:35] VITALS: BP 116/66
[2019-10-24] MEDS: ATORVASTATIN 80 MG TABLET PO SCH (21:35)
[2019-10-24] MEDS: MELATONIN 3 MG TABLET PO SCH (21:35)
[2019-10-25 01:17] VITALS: BP 136/74
[2019-10-25 05:01] LABS: BASOPHILS # (AUTO) 0.06 x10^3/uL (0-0.1); BASOPHILS % (AUTO) 1 % (0-1); EOSINOPHILS % (AUTO) 3 % (1-7); LYMPHOCYTES # (AUTO) 2.76 x10^3/uL (1-3.4); LYMPHOCYTES % (AUTO) 36 % (22-44); MD NO; MEAN CORPUSCULAR HEMOGLOBIN 26.2 pg (27.0-34.8); MEAN CORPUSCULAR HGB CONC 32.5 g/dL (32.4-35.8); MEAN PLATELET VOLUME 7.3 fL (7.4-10.4); MONOCYTES # (AUTO) 0.62 x10^3/uL (0.2-0.8); MONOCYTES % (AUTO) 8 % (2-9); NEUTROPHILS # (AUTO) 3.98 x10^3/uL (1.8-6.8); NEUTROPHILS % (AUTO) 52 % (42-75); PLATELET COUNT 513 x10^3/uL (130-400); RED BLOOD COUNT 3.36 x10^6/uL (3.82-5.3); RED CELL DISTRIBUTION WIDTH 17.4 % (9.6-15.2)
[2019-10-25 05:12] LABS: ALBUMIN 1.6 g/dL (3.4-5.0); ANION GAP 8 mmol/L (5-15); CALCIUM 8.1 mg/dL (8.5-10.1); CHLORIDE 100 mmol/L (98-107)
[2019-10-25 05:16] LABS: ALANINE AMINOTRANSFERASE 53 U/L (12-78); ALKALINE PHOSPHATASE 121 U/L (45-117); BILIRUBIN,TOTAL 0.4 mg/dL (0.2-1.0); CREATININE 0.74 mg/dL (0.55-1.02); TOTAL PROTEIN 6.1 g/dL (6.4-8.2)
[2019-10-25] MEDS: LEVOTHYROXINE 200 MCG TABLET PO SCH (05:22)
[2019-10-25] MEDS: OXYcodone IR 5MG TABLET PO PRN ×2 (05:22→22:14)
[2019-10-25] MEDS: INSULIN LISPRO 100 UNITS/ML, PEN SQ-INSULIN SCH ×4 (07:00→21:00)
[2019-10-25 08:35] VITALS: BP 130/76
[2019-10-25] MEDS ORDERED: POTASSIUM CHLORIDE 20 MEQ TAB.ER.PRT PO SCH (09:00)
[2019-10-25] MEDS: INSULIN GLARGINE 100 UNITS/ML, PEN SQ-INSULIN SCH ×2 (10:34→21:36)
[2019-10-25] MEDS: APIXABAN 5 MG TABLET PO SCH ×2 (10:35→21:14)
[2019-10-25] MEDS: GABAPENTIN 300 MG CAPSULE PO SCH (10:35)
[2019-10-25] MEDS: LISINOPRIL 5 MG TABLET PO SCH (10:35)
[2019-10-25] MEDS: ASCORBIC ACID 500 MG TABLET PO SCH ×2 (10:35→21:15)
[2019-10-25] MEDS: AMLODIPINE 5 MG TABLET PO SCH (10:35)
[2019-10-25] MEDS: SODIUM CHLORIDE FLUSH 10ML SYR IVF SCH ×2 (10:36→21:15)
[2019-10-25] MEDS: FLUCONAZOLE 200 MG TABLET PO SCH (11:20)
[2019-10-25] MEDS ORDERED: FLUCONAZOLE 100 MG TABLET ONE (11:59)
[2019-10-25 13:36] VITALS: BP 114/74
[2019-10-25 18:33] VITALS: BP 106/68
[2019-10-25] MEDS ORDERED: MIRTAZAPINE 15 MG TABLET PO SCH (21:00)
[2019-10-25] MEDS: POTASSIUM CHLORIDE 20 MEQ TAB.ER.PRT PO SCH ×2 (21:00→21:14)
[2019-10-25] MEDS: ATORVASTATIN 80 MG TABLET PO SCH (21:14)
[2019-10-25] MEDS: MELATONIN 3 MG TABLET PO SCH (21:15)
[2019-10-26 05:46] LABS: ALBUMIN 1.8 g/dL (3.4-5.0); ANION GAP 8 mmol/L (5-15); BASOPHILS # (AUTO) 0.03 x10^3/uL (0-0.1); BASOPHILS % (AUTO) 0 % (0-1); CALCIUM 8.3 mg/dL (8.5-10.1); CHLORIDE 104 mmol/L (98-107); EOSINOPHILS # (AUTO) 0.27 x10^3/uL (0-0.4); EOSINOPHILS % (AUTO) 3 % (1-7); LYMPHOCYTES # (AUTO) 3.23 x10^3/uL (1-3.4); LYMPHOCYTES % (AUTO) 31 % (22-44); MD NO; MEAN CORPUSCULAR HEMOGLOBIN 26.2 pg (27.0-34.8); MEAN PLATELET VOLUME 7.2 fL (7.4-10.4); MONOCYTES # (AUTO) 0.93 x10^3/uL (0.2-0.8); MONOCYTES % (AUTO) 9 % (2-9); NEUTROPHILS % (AUTO) 58 % (42-75); PLATELET COUNT 634 x10^3/uL (130-400); RED CELL DISTRIBUTION WIDTH 17.9 % (9.6-15.2)
[2019-10-26 05:51] LABS: % IRON SATURATION 22 % (20-55); ALANINE AMINOTRANSFERASE 68 U/L (12-78); ALKALINE PHOSPHATASE 142 U/L (45-117); BILIRUBIN,TOTAL 0.4 mg/dL (0.2-1.0); CREATININE 0.65 mg/dL (0.55-1.02); IRON LEVEL 32 mcg/dL (50-170); TOTAL IRON BINDING CAPACITY 147 mcg/dL (250-450)
[2019-10-26] MEDS: LEVOTHYROXINE 200 MCG TABLET PO SCH (06:25)
[2019-10-26 06:57] VITALS: BP 135/79
[2019-10-26] MEDS: INSULIN LISPRO 100 UNITS/ML, PEN SQ-INSULIN SCH ×3 (07:00→16:00)
[2019-10-26] MEDS: SODIUM CHLORIDE FLUSH 10ML SYR IVF SCH (10:21)
[2019-10-26] MEDS: ASCORBIC ACID 500 MG TABLET PO SCH (10:22)
[2019-10-26] MEDS: AMLODIPINE 5 MG TABLET PO SCH (10:22)
[2019-10-26] MEDS: LISINOPRIL 5 MG TABLET PO SCH (10:22)
[2019-10-26] MEDS: APIXABAN 5 MG TABLET PO SCH (10:22)
[2019-10-26] MEDS: POTASSIUM CHLORIDE 20 MEQ TAB.ER.PRT PO SCH (10:22)
[2019-10-26] MEDS: GABAPENTIN 300 MG CAPSULE PO SCH (10:22)
[2019-10-26] MEDS: FLUCONAZOLE 200 MG TABLET PO SCH (10:22)
[2019-10-26] MEDS: INSULIN GLARGINE 100 UNITS/ML, PEN SQ-INSULIN SCH (10:24)
[2019-10-26] MEDS ORDERED: GABA300C PO (11:40)
[2019-10-26] MEDS ORDERED: INSU100I13 SQ-INSULIN (11:40)
[2019-10-26] MEDS ORDERED: FLUC200T PO (11:40)
[2019-10-26] MEDS ORDERED: APIX5TAB PO (11:40)
[2019-10-26] MEDS ORDERED: POTA20TA6 PO (11:40)
[2019-10-26] MEDS ORDERED: MIRT-34 PO (11:40)
[2019-10-26] MEDS ORDERED: MELA3TAB31 PO (11:40)
[2019-10-26] MEDS ORDERED: ACET325T26 PO (11:40)
[2019-10-26] MEDS ORDERED: OXYC5TAB3 PO (11:40)
[2019-10-26] MEDS ORDERED: ATOR-2 PO (11:40)
[2019-10-26] MEDS ORDERED: LOPE2CAP PO (11:40)
[2019-10-26] MEDS ORDERED: LISI5TAB7 PO (11:40)
[2019-10-26 14:44] VITALS: BP 137/81
[2019-11-17] MEDS ORDERED: EZET10TA48 PO (14:25)
[2019-11-17] MEDS ORDERED: INSU100I11 SQ-INSULIN (14:25)
[2019-11-17] MEDS ORDERED: ACET325T26 PO (14:25)
[2019-11-17] MEDS ORDERED: MELA3TAB31 PO (14:25)
[2019-11-17] MEDS ORDERED: MERO1VIA24 IV (14:25)
[2019-11-17] MEDS ORDERED: MAGN400T50 PO (14:25)
[2019-11-17] MEDS ORDERED: INSU100I13 SQ-INSULIN (14:25)
[2019-11-17] MEDS ORDERED: DAPT500V6 IV (14:25)
== END 2019-10-26 16:50 | DRG 871 ==
LOC: ED 13:32 → EDIP 14:24 → 4WST 18:27 → 4NE 10-14 17:54 → 5SO 10-19 11:15 → 4NE 10-24 16:45
PROVIDERS: ADMIT Internal Medicine; ATTEND Internal Medicine
DX: A41.9 Sepsis, unspecified organism (principal); G93.41 Metabolic encephalopathy; E43 Unspecified severe protein-calorie malnutrition; I63.9 Cerebral infarction, unspecified; J96.01 Acute respiratory failure with hypoxia; E87.1 Hypo-osmolality and hyponatremia; N39.0 Urinary tract infection, site not specified; I47.2 Ventricular tachycardia; J98.11 Atelectasis; E11.649 Type 2 diabetes mellitus with hypoglycemia without coma; I10 Essential (primary) hypertension; E03.9 Hypothyroidism, unspecified; E87.6 Hypokalemia; B96.5 Pseudomonas (aeruginosa) (mallei) (pseudomallei) as the cause of diseases classified elsewhere; D63.8 Anemia in other chronic diseases classified elsewhere; E11.40 Type 2 diabetes mellitus with diabetic neuropathy, unspecified; E78.5 Hyperlipidemia, unspecified; F41.8 Other specified anxiety disorders; I35.0 Nonrheumatic aortic (valve) stenosis; I37.1 Nonrheumatic pulmonary valve insufficiency; I48.91 Unspecified atrial fibrillation; I66.12 Occlusion and stenosis of left anterior cerebral artery; Z66 Do not resuscitate; Z79.4 Long term (current) use of insulin; Z68.26 Body mass index [BMI] 26.0-26.9, adult; Z79.01 Long term (current) use of anticoagulants; Z79.899 Other long term (current) drug therapy
CPT/HCPCS: 36415; 70450; 70496; 70498; 70553; 71045; 80053; 80061; 81001; 82140; 82607; 82962; 83540; 83550; 83605; 83735; 84145; 84436; 84481; 85025; 85651; 86140; 87040; 87086; 87106; 87324; 93005; 93306; 93880; 93922; 99285; G0378; J2543; J3480; Q9967; 92523-GN; A9575; J1450; J1815; J2060; J3475; J7030; J7040; J7120